=== PATIENT | female | born 1990 | race Caucasian/White ===

== ENCOUNTER 2016-10-07 19:57 | Inpatient (IN) | payer OTHER ==
[~2016-10-07] VITALS: Ht 152.4 cm; Wt 60.7 kg
[~2016-10-07 19:57] MED LIST: ACET325T33 PO; FERR27TA PO; NITR-58 PO; PREN1TAB49 PO
[2016-10-07] MEDS ORDERED: LACTATED RINGER'S 1,000 ML IV SCH ×2 (21:05→22:28)
[2016-10-07] MEDS ORDERED: TERBUTALINE 1 MG/ML INJ SC ONE ×2 (21:30→22:00)
[2016-10-07] MEDS ORDERED: ACETAMINOPHEN 325 MG TAB PO PRN (22:30)
[2016-10-07] MEDS ORDERED: CA GLUCONATE (GM) 10% 10ML INJ IV PRN (22:30)
[2016-10-07 22:39] LABS: ADD UMIC NO; UR ASCORBIC ACID NEGATIVE (NEGATIVE); UR BILIRUBIN (Dip) NEGATIVE (NEGATIVE); UR BLOOD (Dip) NEGATIVE (NEGATIVE); UR CLARITY CLEAR (CLEAR); UR COLOR YELLOW (YELLOW); UR GLUCOSE (Dip) NEGATIVE (NEGATIVE); UR KETONES (Dip) NEGATIVE (NEGATIVE); UR LEUKOCYTE ESTERASE (Dip) NEGATIVE Leu/ul (NEGATIVE); UR NITRITE (Dip) NEGATIVE (NEGATIVE); UR SPECIFIC GRAVITY (Dip) 1.012 (1.003-1.030); UR TOTAL PROTEIN (Dip) NEGATIVE (NEGATIVE); UR UROBILINOGEN (Dip) 1+ mg/dL (NEGATIVE)
[2016-10-07] MEDS: BETAMET NA PHOS/AC(6 MG/ML) 5ML INJ IM SCH (22:54)
[2016-10-07] MEDS: LACTATED RINGER'S 1,000 ML IV SCH (22:55)
[2016-10-07] MEDS ORDERED: MAGNESIUM SULFATE 4 GM/100 ML 100 ML IV SCH (23:00)
--- NOTE | 2016-10-07 23:05 | HP ---
Date/Time of Note Date/Time of Note DATE: 10/07/16 TIME: 22:56 OB - History Hx of Present Free Text/Dictation 26 y.o. with an IUP at 32w 2d and c/o contractions for a few days but stronger today and has a history of labor and delivery at 32 weeks with her 2nd baby. No bleeding or leaking. Chief Complaint: contractions. Estimated Due Date: Nov 30, 2016 : 5 Para: 4 Care: Good Care Ultrasounds: Normal mid trimester US (Per pt as her records are not available.) Abnormal Ultrasound Findings: On US done today the pt's cervix is short at 2 cm. Obstetrical Complications: None Medical Complications: None Past Family/Social History * Past Medical, Surgical, Family and Obstetric Histories reviewed with pt as prenatals not available. PMHx: none. PSHx: none. NKDA. Blood Type: Unknown Rubella: unknown RPR/VDRL: Unknown GBS Status: Unknown HBsAG: Unknown OB Admission Exam Physical Exam HEENT: WNL Heart: Rhythm Normal Abdomen: WNL Extremities: Normal Reflexes: Normal Cervical Dilatation: None Effacement: 75% Membranes: Intact Heart Rate: 150's Accelerations: Accelerations Present Decelerations: No Decelerations Varibility: Moderate Contractions on Admission: 6-10 Minutes Apart Intensity: Moderate OB Assessment/Plan Reason for admission: labor Other plan: Admit pt. Magnesium sulfate tocolysis. Steroids for pulmonary maturation. Beta strep cx, Bedrest. NADINE MCKEON MD Oct 07, 2016 23:05
[2016-10-07] MEDS: MAGNESIUM SULFATE 20 GM/500 ML 500 ML IV SCH (23:25)
--- NOTE | 2016-10-07 23:49 | RADRPT ---
PROCEDURE: Obstetrical ultrasound greater than 14 weeks CLINICAL INDICATION: labor TECHNIQUE: Real time sonographic imaging of the gravid uterus is performed transabdominally and mu ltiple static lui scale and Doppler images are submitted for review as are measurements. The image s are reviewed on the PACS. COMPARISON: No relevant exams are available FINDINGS: The cervical os is closed with a normal cervical length of 2.03 cm. There is a single living intrauterine gestation in cephalic presentation. The heart beat is estimated at 159 bpm. Placenta is anterior and grade2. There is no evidence of placenta previa or abruption. RPTAT:HJJR IMPRESSION: 1. Single viable intrauterine gestation in cephalic presentation the heart rate estimated at 159 bpm . 2. Cervical length measured at 2.03 cm. Physician Blaine Date Time Electronically viewed and signed by Physician Blaine on 10/07/2016 23:49 /
--- NOTE | 2016-10-07 23:54 | TRIAGE ---
OB Triage Datetime Report Generated by CPN: 10/07/2016 23:54 Datetime: 10/07/2016 23:45 Labor Evaluation Frequency: 2-7 Monitor Mode: External Duration (sec)2399: 40-70 Pattern: Normal: <= 5 Contractions in 10 Minutes Contraction Comments: IRREGULAR PATTERN Heart Rate FHR Baseline Rate: 145 Monitor Mode: External US FHR Baseline Changes: No Baseline Change Variability: Moderate 6-25 bpm Accelerations: 15X15 Category: Category I Datetime: 10/07/2016 23:00 Labor Evaluation Frequency: OCC Monitor Mode: External Pattern: Normal: <= 5 Contractions in 10 Minutes Heart Rate FHR Baseline Rate: 140 Monitor Mode: External US FHR Baseline Changes: No Baseline Change Variability: Moderate 6-25 bpm Accelerations: 15X15 Datetime: 10/07/2016 22:00 Labor Evaluation Frequency: OCC Monitor Mode: External Duration (sec)2399: 40-90 Pattern: Normal: <= 5 Contractions in 10 Minutes Monitor Mode: External US FHR Baseline Changes: No Baseline Change Variability: Moderate 6-25 bpm Accelerations: 10X10 Category: Category I Datetime: 10/07/2016 21:47 Pain Assessment Pain Assessment Comments: WHEN ASKED PATIENT ABOUT THE PAIN, PT. STATED THAT SHE FEELS 'MUCH MELODY R' Datetime: 10/07/2016 21:00 Labor Evaluation Frequency: 2-7 Monitor Mode: External Duration (sec)2399: 40-70 Pattern: Normal: <= 5 Contractions in 10 Minutes Heart Rate FHR Baseline Rate: 145 Monitor Mode: External US FHR Baseline Changes: No Baseline Change Variability: Moderate 6-25 bpm Accelerations: 15X15 Datetime: 10/07/2016 20:07 EGA: 32.2 Datetime: 10/07/2016 20:06 Time of Arrival: 10/07/2016 19:07 Arrived By: Ambulatory Arrived From: Home Chief Complaint: UC'S SINCE MONDAY, INCREASED ON MONDAY Movement: Present Contractions: Regular Time Contractions Began: 10/03/2016 09:00 Contractions: Q15-20 Rupture of Membranes: Denies Vaginal Discharge: Denies Recent Sexual Intercouse: Denies Abdominal Trauma: Not Applicable Patient Complaints: Contractions Time Provider Notified: 10/07/2016 20:50 Provider Notified: REICHE Initial Plan: EFM,CALL OB Datetime: 10/07/2016 20:00 Assessment Type: Triage Maternal Assessment Level of Consciousness: Fully Conscious Headache: Denies Blurred Vision: No Respiratory Effort: Unlabored; Regular Rhythm; Equal Expansion Breath Sounds, Left: Clear and Equal Breath Sounds, Right: Clear and Equal Nausea/Vomiting: Denies RUQ Epigastric Pain: Denies Facial Edema: None Fall Risk Assessment History of Falling: (0) No Secondary Diagnosis: (0) No Ambulatory Aid: (0) Bedrest/Nurse Assist IV Therapy: (0) No Gait: (0) Normal/Bedrest/Immobile Mental Status: (0) Oriented to Own Ability Fall Score: 0 Fall Risk Score Definition: No Risk: No action required
[2016-10-08 00:19] LABS: BASOPHILS % 0.2 % (0.0-2.0); EOSINOPHILS # 0.1 10^3/ul (0.0-0.5); EOSINOPHILS % 0.6 % (0.0-7.0); HEMATOCRIT 27.5 % (37.0-47.0); HEMOGLOBIN 8.7 g/dl (12.0-16.0); LYMPHOCYTES % 19.5 % (15.0-51.0); MEAN CORPUSCULAR HEMOGLOBIN 24.2 pg (29.0-33.0); MEAN CORPUSCULAR HGB CONC 31.6 g/dl (32.0-37.0); MEAN CORPUSCULAR VOLUME 76.6 fl (82.0-101.0); MEAN PLATELET VOLUME 11.1 fl (7.4-10.4); MONOCYTE # 0.5 10^3/ul (0.3-0.9); MONOCYTES % 4.8 % (0.0-11.0); NEUTROPHIL # 7.6 10^3/ul (1.6-7.5); NEUTROPHILS % 74.3 % (39.0-77.0); PLATELET COUNT 174 10^3/UL (140-415); RED BLOOD COUNT 3.59 10^6/ul (4.20-5.40); RED CELL DISTRIBUTION WIDTH 13.9 % (11.5-14.5); WHITE BLOOD COUNT 10.3 10^3/ul (4.8-10.8)
[2016-10-08 01:01] LABS: ALBUMIN 3.2 g/dl (3.3-4.9); ALBUMIN/GLOBULIN RATIO 1.06; BILIRUBIN,INDIRECT 0.1 mg/dl (0-1.1); BILIRUBIN,TOTAL 0.1 mg/dl (0.2-1.3); CALCIUM 7.7 mg/dl (8.4-10.2); CREATININE 0.46 mg/dl (0.44-1.00); TOTAL PROTEIN 6.2 g/dl (6.1-8.1)
[2016-10-08 01:03] LABS: POTASSIUM 2.8 mmol/L (3.5-5.1)
[2016-10-08] MEDS ORDERED: POTASSIUM CHLORIDE (SR) 20 MEQ TAB PO STA ×2 (01:22)
[2016-10-08] MEDS ORDERED: POTASSIUM CHLORIDE (SR) 20 MEQ TAB PO ONE (01:31)
[2016-10-08] MEDS: MAGNESIUM SULFATE 20 GM/500 ML 500 ML IV SCH ×3 (08:33→21:45)
[2016-10-08] MEDS: PRENATAL VITAMIN PO SCH (10:16)
[2016-10-08] MEDS: FERROUS SULFATE (EC) 325 MG TAB PO SCH ×2 (10:16→21:43)
[2016-10-08] MEDS: DOCUSATE SODIUM 100 MG CAP PO SCH ×2 (10:16→21:43)
[2016-10-08] MEDS: LACTATED RINGER'S 1,000 ML IV SCH (11:46)
--- NOTE | 2016-10-08 11:53 | PN ---
Date/Time of Note Date/Time of Note DATE: 10/08/16 TIME: 11:50 OB Subjective Subjective Subjective She is resting in bed her vital signs are stable describes mild contraction if you within 1 hour she still on 2 g of magnesium sulfate as of last night with reduced mag sulfate to 1 g at 9 PM with the plan to discontinue mag sulfate 12 hours later if if no more or fever contractions . FRANNIE SANTA MD Oct 08, 2016 11:53
[2016-10-08] MEDS: BETAMET NA PHOS/AC(6 MG/ML) 5ML INJ IM SCH (23:30)
[2016-10-09] MEDS: LACTATED RINGER'S 1,000 ML IV SCH (00:34)
[2016-10-09] MEDS: MAGNESIUM SULFATE 20 GM/500 ML 500 ML IV SCH (06:59)
[2016-10-09] MEDS: PRENATAL VITAMIN PO SCH (08:50)
[2016-10-09] MEDS: DOCUSATE SODIUM 100 MG CAP PO SCH ×2 (08:50→20:58)
[2016-10-09] MEDS: FERROUS SULFATE (EC) 325 MG TAB PO SCH ×2 (08:50→20:58)
[2016-10-10] MEDS: FERROUS SULFATE (EC) 325 MG TAB PO SCH (08:52)
[2016-10-10] MEDS: DOCUSATE SODIUM 100 MG CAP PO SCH (08:52)
[2016-10-10] MEDS: PRENATAL VITAMIN PO SCH (08:53)
--- NOTE | 2016-10-10 10:15 | PN ---
Date/Time of Note Date/Time of Note DATE: 10/10/16 TIME: 10:03 OB Subjective Subjective Subjective Today she is 32 weeks and 5 /7 days she was getting magnesium sulfate for contraction which she has no more contraction, her magnesium sulfate was stopped at 10:00 today she is being placed on Procardia 20 mg every 6 hours if she does well on Procardia and no more contraction she may be discharged if approved by the perinatologist, to continue on Procardia , twice per week NST clinic to check cervical length, she will have ultrasound for cervical length and estimated weight today. Her last cervical length on the was2.2 FRANNIE SANTA MD Oct 10, 2016 10:14
--- NOTE | 2016-10-10 11:26 | RADRPT ---
PROCEDURE: Limited obstetric ultrasound CLINICAL INDICATION: labor, short cervix TECHNIQUE: Multiple transverse and longitudinal grayscale images of the pelvis were obtained rea sabdominally and endovaginally.. COMPARISON: Obstetrical ultrasound from 10/07/2016 FINDINGS: There is a single live intrauterine gestation in a vertex position with a heart rate of 152 bp m. The cervix is closed and measures 2.1 cm in length. RPTAT: AA IMPRESSION: The cervix is closed and measures 2.1 cm in length which is not significantly changed compared to th e prior ultrasound study from 10/07/2016. Physician Remington Date Time Electronically viewed and signed by Chaitanya Sánchez Physician on 10/10/2016 11:26 RA/
[2016-10-10] MEDS: NIFEdipine 10 MG CAP PO SCH ×2 (11:55→17:26)
--- NOTE | 2016-10-10 15:35 | PERINOTE ---
Date/Time of Note Date/Time of Note DATE: 10/10/16 TIME: 15:31 Assessment/Recommendations Other Assessments IUP UCs, now resolved on medication Recommendations: Feel that this patient is ready for discharged to limited activity at home. OB Subjective Free Text/Dictaton Patient with prior delivery admitted with UCs, treated with magnesium sulfate and betamethasone. Currently without complaints of UCs and on PO meds. HD# 4 IUP @ 32W5D Current Medications Current Medications Prenat Multivit/ Facilities Officer/Iron/Folic Ac () 1 tab DAILY PO Last administered on 10/10/16 08:53; Admin Dose 1 TAB; Start 10/08/16 at 09:00 Acetaminophen (Tylenol Tab) 650 mg Q4H PRN PO PAIN AND OR ELEVATED TEMP Last administered on 10/08/16 07:46; Admin Dose 650 MG; Start 10/07/16 at 22:30 Calcium Gluconate (Ca Gluc) 1 gm ONCE PRN IV FOR MAGNESIUM TOXICITY; Start 10/07 at 22:30 Docusate Sodium (Colace) 100 mg BID PO Last administered on 10/10/16 08:52; Admin Dose 100 MG; Start 10/08/16 at 09:00 Ferrous Sulfate (Ferrous Sulfate (Ec)) 325 mg BID PO Last administered on 08:52; Admin Dose 325 MG; Start 10/08/16 at 09:00 Nifedipine (Procardia) 20 mg Q6 PO Last administered on 10/10/16 11:55; Admin Dose 20 MG; Start 10/10/16 at 12:00 Past Medical History Medical History: no pertinent history Surgical History: appendectomy SOFTWARE SPECIALIST History: no pertinent SOFTWARE SPECIALIST history Para: 4 : 5 LMP (Females 10-50): Family History Significant Family History: no pertinent family hx OB Admission Exam Physical Exam Vitals: BP 123/61 P 81 Heart: Rhythm Normal Lungs: Clear Abdomen: WNL Heart Rate: 140's Accelerations: Accelerations Present Decelerations: No Decelerations Varibility: Moderate Contractions on Admission: None Last 72 hours Lab Results CBC & BMP 10/08/16 00:13 10/08/16 06:34 Liver Function Test 10/08/16 00:13 Alanine Aminotransferase (ALT/SGPT) 24 Albumin 3.2 L Alkaline Phosphatase 154 H Aspartate Amino Transf (AST/SGOT) 18 Direct Bilirubin 0.00 Total Protein 6.2 Magnesium Level Test 10/08/16 06:34 10/08/16 11:55 10/08/16 18:04 10/09/16 00:35 Magnesium Level 5.2 *H 5.2 *H 5.3 *H 5.0 H Test 10/09/16 06:37 Magnesium Level 5.1 *H JANAY ELISE MD Oct 10, 2016 15:34
--- NOTE | 2016-10-11 05:38 | DS ---
DATE OF ADMISSION: 10/07/2016 DATE OF DISCHARGE: 10/10/2016 HOSPITAL COURSE: The patient is a 26-year-old G5, P4 at 32-1/2 weeks' intrauterine conception. This patient at that point was admitted for labor and started on magnesium sulfate and betamethasone. On the day of discharge, the patient's cervical length was 2.0. The patient was not florentino and os was closed. The patient was discharged home with followup with her CLERK within 1-2 days. All precautions were given and the patient is stable upon discharge. Dictated By: Rome Aranda MD /britt/jonathan /Document#: [id number]
== END 2016-10-10 17:25 | disposition home or self-care (01) | DRG 778 ==
LOC: L-D 19:57 → OBT 19:57 → OBG 23:44
PROVIDERS: ADMIT Obstetrics & Gynecology; ATTEND Obstetrics & Gynecology
DX: O60.03 Preterm labor without delivery, third trimester (principal); Z87.51 Personal history of pre-term labor; Z3A.32 32 weeks gestation of pregnancy
CPT/HCPCS: 36415; 76817; 80053; 81003; 82731; 83735; 84132; 85025; 87081; 96360; 96361; 96368; 96372; G0463; J0702; J3105; J3475; J7120

== ENCOUNTER 2016-11-09 22:35 | Outpatient (CLI) | payer OTHER ==
[~2016-11-09] VITALS: Ht 152.4 cm; Wt 63.4 kg
[~2016-11-09 22:35] MED LIST changes: +PREN-46 PO
[2016-11-09 23:42] VITALS: BP 141/90; PULSE 75; RESP 20
[2016-11-10 01:03] LABS: BASOPHILS % 0.3 % (0.0-2.0); EOSINOPHILS # 0.1 10^3/ul (0.0-0.5); EOSINOPHILS % 0.8 % (0.0-7.0); HEMATOCRIT 28.7 % (37.0-47.0); HEMOGLOBIN 8.9 g/dl (12.0-16.0); LYMPHOCYTES # 2.7 10^3/ul (0.8-2.9); LYMPHOCYTES % 31.1 % (15.0-51.0); MEAN CORPUSCULAR HEMOGLOBIN 23.2 pg (29.0-33.0); MEAN CORPUSCULAR VOLUME 74.7 fl (82.0-101.0); MEAN PLATELET VOLUME 11.6 fl (7.4-10.4); MONOCYTE # 0.6 10^3/ul (0.3-0.9); MONOCYTES % 6.6 % (0.0-11.0); NEUTROPHILS % 60.7 % (39.0-77.0); PLATELET COUNT 165 10^3/UL (140-415); RED BLOOD COUNT 3.84 10^6/ul (4.20-5.40); RED CELL DISTRIBUTION WIDTH 15.9 % (11.5-14.5); WHITE BLOOD COUNT 8.7 10^3/ul (4.8-10.8)
--- NOTE | 2016-11-10 01:20 | RADRPT ---
PROCEDURE: Biophysical profile. CLINICAL INDICATION: Pelvic pain. TECHNIQUE: Multiple sonographic images of the pelvis were obtained with transabdominal technique. COMPARISON: 10/10/2016. FINDINGS: There is a single living intrauterine gestation with the fetus in a vertex position. The placenta i s anterior in location, grade II to III. heart tones of 163 beats per minute are identified. There is low normal amniotic fluid volume with an SHRUTI of 8.7 cm. breathing movements = 2 Gross body movements = 2 tone = 2 Qualitative AFV = 2 IMPRESSION: Biophysical profile 8 out of 8. Low normal SHRUTI of 8.7 cm. .Mike Johnson MD, Date Time Electronically viewed and signed by .Mike Johnson MD, MD on 11/10/2016 01:20 .T/
--- NOTE | 2016-11-10 01:20 | RADRPT ---
PROCEDURE: Obstetrical ultrasound, limited. CLINICAL INDICATION: Pelvic pain. TECHNIQUE: Multiple sonographic images of the pelvis were obtained using transabdominal technique . Images were obtained with lui scale and color Doppler. The images were reviewed on a PACS works [employer]. COMPARISON: 10/10/2016. FINDINGS: There is a single living intrauterine gestation with the fetus in a vertex presentation. hear t tones of 166 beats per minute are identified. The placenta is anterior in location, grade 2-3. T here is no evidence of placenta previa or abruption. Measurements were made in order to determine age. The results are as follows: BPD =8.52 cm HC =30.94 cm AC =34.33 cm FL =7.19 cm. Estimated gestational age of approximately 36 weeks and 0 days. The estimated date of delivery is 12/08/2016. The EFW = 3090 +/- 463 grams. Estimated weight percentage equals 56.4%. IMPRESSION: Single viable intrauterine gestation of approximately 36 weeks and 0 days, with an ultrasound ROSALIO of 12/08/2016. .Mike Johnson MD, MD Date Time Electronically viewed and signed by .Mike Johnson MD, MD on 11/10/2016 01:19 .T/
[2016-11-10 02:06] LABS: PARTIAL THROMBOPLASTIN TIME 30.7 Sec (25.0-35.0); PROTIME 13.2 Sec (12.2-14.2)
[2016-11-10 02:14] LABS: ALBUMIN 2.9 g/dl (3.3-4.9); ALBUMIN/GLOBULIN RATIO 0.93; BILIRUBIN,INDIRECT 0.2 mg/dl (0-1.1); BILIRUBIN,TOTAL 0.2 mg/dl (0.2-1.3); CALCIUM 8.2 mg/dl (8.4-10.2); CREATININE 0.6 mg/dl (0.44-1.00); POTASSIUM 3.7 mmol/L (3.5-5.1); URIC ACID 3.9 mg/dl (3.1-7.9)
[2016-11-10 03:17] LABS: ADD UMIC NO; UR ASCORBIC ACID NEGATIVE (NEGATIVE); UR BILIRUBIN (Dip) NEGATIVE (NEGATIVE); UR BLOOD (Dip) NEGATIVE (NEGATIVE); UR CLARITY CLEAR (CLEAR); UR COLOR YELLOW (YELLOW); UR GLUCOSE (Dip) NEGATIVE (NEGATIVE); UR KETONES (Dip) NEGATIVE (NEGATIVE); UR LEUKOCYTE ESTERASE (Dip) NEGATIVE Leu/ul (NEGATIVE); UR NITRITE (Dip) NEGATIVE (NEGATIVE); UR SPECIFIC GRAVITY (Dip) 1.015 (1.003-1.030); UR TOTAL PROTEIN (Dip) NEGATIVE (NEGATIVE); UR UROBILINOGEN (Dip) NEGATIVE (NEGATIVE)
--- NOTE | 2016-11-10 04:21 | TRIAGE ---
OB Triage Datetime Report Generated by CPN: 11/10/2016 04:20 Datetime: 11/10/2016 03:53 Stage of : OB Triage Monitor Mode: External Quality: Mild Pattern: Normal: <= 5 Contractions in 10 Minutes Resting Tone [place]: Relaxed Heart Rate FHR Baseline Rate: 120 Monitor Mode: External US FHR Baseline Changes: No Baseline Change Variability: Moderate 6-25 bpm Accelerations: 15X15 Decelerations: None Category: Category I Pain Assessment Pain Scale: 0 Pain Presence: None/Denies Pain Type: N/A Datetime: 11/10/2016 03:01 Stage of : OB Triage Monitor Mode: External Quality: Mild Pattern: Normal: <= 5 Contractions in 10 Minutes Resting Tone [place]: Relaxed Heart Rate FHR Baseline Rate: 120 Monitor Mode: External US FHR Baseline Changes: No Baseline Change Variability: Moderate 6-25 bpm Accelerations: 15X15 Decelerations: None Category: Category I Datetime: 11/10/2016 02:00 Stage of : OB Triage Quality: Mild Pattern: Normal: <= 5 Contractions in 10 Minutes Resting Tone [place]: Relaxed Heart Rate FHR Baseline Rate: 120 Monitor Mode: External US Variability: Moderate 6-25 bpm Accelerations: 15X15 Decelerations: None Category: Category I Pain Presence: Intermittent Pain Type: Cramping Datetime: 11/10/2016 01:02 Heart Rate FHR Baseline Rate: 140 Monitor Mode: External US FHR Baseline Changes: No Baseline Change Variability: Moderate 6-25 bpm Accelerations: 15X15 Datetime: 11/10/2016 00:21 Vaginal Exam Dilatation (cms): 1.0 Effacement (%): 50 Station: -3 Exam By: EVELYN Vaginal Bleeding: None Cervix, Consistency: Moderate Cervix, Position: Posterior Datetime: 11/09/2016 23:55 Stage of : OB Triage Labor Evaluation Frequency: 2-5 Monitor Mode: External Duration (sec)2399: 40-60 Quality: Mild Pattern: Normal: <= 5 Contractions in 10 Minutes Resting Tone [place]: Relaxed Heart Rate FHR Baseline Rate: 130 Monitor Mode: External US FHR Baseline Changes: No Baseline Change Variability: Moderate 6-25 bpm Accelerations: 15X15 Decelerations: None Category: Category I Datetime: 11/09/2016 23:10 Stage of : OB Triage Maternal Assessment Level of Consciousness: Fully Conscious DTR's/Clonus: DTRs 2+; No Clonus Headache: Denies Blurred Vision: No Respiratory Effort: Unlabored Nausea/Vomiting: Denies RUQ Epigastric Pain: Denies Facial Edema: None Monitor Mode: External Resting Tone [place]: Relaxed Heart Rate FHR Baseline Rate: 140 Monitor Mode: External US Pain Assessment Pain Scale: 5 Pain Presence: Intermittent Pain Type: Contraction Pain Location: Abdomen Datetime: 11/09/2016 23:00 Time of Arrival: 11/09/2016 22:30 EGA: 37.0 Arrived By: Wheelchair Arrived From: Home Chief Complaint: c/o ucs Movement: Present Contractions: Irregular Time Contractions Began: 11/09/2016 19:30 Contractions: 10-15 Rupture of Membranes: Denies Vaginal Bleeding: None Vaginal Discharge: Denies Recent Sexual Intercouse: Denies Abdominal Trauma: Not Applicable Patient Complaints: Contractions Time Provider Notified: 11/09/2016 23:55 Provider Notified: Dr Ardalan Initial Plan: EFM,SVE,PIH labs, EFW,BPP Datetime: 10/10/2016 17:27 Stage of : Antepartum Datetime: 10/10/2016 17:00 Labor Evaluation Frequency: x1 Monitor Mode: External Duration (sec)2399: 40 Quality: Mild Heart Rate FHR Baseline Rate: 145 Monitor Mode: External US FHR Baseline Changes: No Baseline Change Variability: Moderate 6-25 bpm Accelerations: 15X15 Decelerations: None Datetime: 10/10/2016 16:00 Labor Evaluation Frequency: x1 Monitor Mode: External Duration (sec)2399: 40 Quality: Mild Heart Rate FHR Baseline Rate: 145 Monitor Mode: External US FHR Baseline Changes: No Baseline Change Variability: Moderate 6-25 bpm Accelerations: 15X15 Decelerations: None Datetime: 10/10/2016 15:47 Temperature Route: Oral Datetime: 10/10/2016 15:00 Labor Evaluation Frequency: x1 Monitor Mode: External Duration (sec)2399: 40 Quality: Mild Heart Rate FHR Baseline Rate: 145 Monitor Mode: External US FHR Baseline Changes: No Baseline Change Variability: Moderate 6-25 bpm Accelerations: 15X15 Decelerations: None Category: Category I Datetime: 10/10/2016 14:42 Stage of : Antepartum Datetime: 10/10/2016 14:00 Labor Evaluation Frequency: x1 Monitor Mode: External Duration (sec)2399: 60 Quality: Mild Resting Tone [place]: Relaxed Heart Rate FHR Baseline Rate: 140 Monitor Mode: External US FHR Baseline Changes: No Baseline Change Variability: Moderate 6-25 bpm Accelerations: 15X15 Decelerations: None Category: Category I Datetime: 10/10/2016 13:00 Labor Evaluation Frequency: x1 Monitor Mode: External Duration (sec)2399: 60 Quality: Mild Resting Tone [place]: Relaxed Heart Rate FHR Baseline Rate: 140 Monitor Mode: External US FHR Baseline Changes: No Baseline Change Variability: Moderate 6-25 bpm Accelerations: 15X15 Decelerations: None Datetime: 10/10/2016 12:35 Stage of : Antepartum Datetime: 10/10/2016 12:00 Labor Evaluation Frequency: x1 Monitor Mode: External Duration (sec)2399: 70 Quality: Mild Resting Tone [place]: Relaxed Heart Rate FHR Baseline Rate: 140 Monitor Mode: External US FHR Baseline Changes: No Baseline Change Variability: Moderate 6-25 bpm Accelerations: 15X15 Decelerations: None Category: Category I Datetime: 10/10/2016 11:54 Stage of : Antepartum Temperature Route: Oral Pain Assessment Pain Scale: 0 Pain Goal: 0 Datetime: 10/10/2016 11:00 Labor Evaluation Frequency: x2 Monitor Mode: External Duration (sec)2399: 70 Quality: Mild Resting Tone [place]: Relaxed Heart Rate FHR Baseline Rate: 140 Monitor Mode: External US FHR Baseline Changes: No Baseline Change Variability: Moderate 6-25 bpm Accelerations: 15X15 Decelerations: None Category: Category I Pain Assessment Pain Scale: 1 Pain Presence: Intermittent Pain Location: Abdomen Datetime: 10/10/2016 10:00 Labor Evaluation Frequency: irritabilities Monitor Mode: External Duration (sec)2399: 20 Quality: Mild Resting Tone [place]: Relaxed Heart Rate FHR Baseline Rate: 135 Monitor Mode: External US FHR Baseline Changes: No Baseline Change Variability: Moderate 6-25 bpm Accelerations: 15X15 Decelerations: None Category: Category I Datetime: 10/10/2016 09:00 Labor Evaluation Frequency: 0 Monitor Mode: External Resting Tone [place]: Relaxed Heart Rate FHR Baseline Rate: 140 Monitor Mode: External US FHR Baseline Changes: No Baseline Change Variability: Moderate 6-25 bpm Accelerations: 10X10 Datetime: 10/10/2016 08:00 Labor Evaluation Frequency: x3 Monitor Mode: External Duration (sec)2399: 60 Quality: Mild Resting Tone [place]: Relaxed Heart Rate FHR Baseline Rate: 145 Monitor Mode: External US FHR Baseline Changes: No Baseline Change Variability: Moderate 6-25 bpm Accelerations: 15X15 Decelerations: None Category: Category I Pain Assessment Pain Scale: 0 Pain Presence: None/Denies Pain Type: N/A Datetime: 10/10/2016 07:59 Temperature Route: Oral Pain Assessment Pain Scale: 0 Pain Presence: None/Denies Pain Goal: 0 Datetime: 10/10/2016 07:50 Assessment Type: Ongoing Assessment Maternal Assessment Level of Consciousness: Fully Conscious Headache: Denies Blurred Vision: No Respiratory Effort: Unlabored; Regular Rhythm; Equal Expansion Nausea/Vomiting: Denies RUQ Epigastric Pain: Denies Lower Extremities Edema: None Upper Extremities Edema: None Facial Edema: None Fall Risk Assessment History of Falling: (0) No Secondary Diagnosis: (0) No Ambulatory Aid: (0) Bedrest/Nurse Assist IV Therapy: (0) No Gait: (0) Normal/Bedrest/Immobile Mental Status: (0) Oriented to Own Ability Fall Score: 0 Fall Risk Score Definition: No Risk: No action required Datetime: 10/10/2016 07:00 Labor Evaluation Frequency: 0 Monitor Mode: External Heart Rate FHR Baseline Rate: 140 Monitor Mode: External US Comments: POOR QUALITY WHILE SLEEPING ON HER SIDE. Datetime: 10/10/2016 06:00 Labor Evaluation Frequency: 0 Monitor Mode: External Heart Rate FHR Baseline Rate: 140 Monitor Mode: External US FHR Baseline Changes: No Baseline Change Variability: Moderate 6-25 bpm Accelerations: 15X15 Decelerations: None Category: Category I Datetime: 10/10/2016 05:58 Temperature Route: Oral Pain Assessment Pain Scale: 0 Datetime: 10/10/2016 05:00 Labor Evaluation Frequency: X2 Monitor Mode: External Duration (sec)2399: 80-120 Quality: Mild Resting Tone [place]: Relaxed Heart Rate FHR Baseline Rate: 140 Monitor Mode: External US FHR Baseline Changes: No Baseline Change Variability: Moderate 6-25 bpm Accelerations: 15X15 Decelerations: None Category: Category I Datetime: 10/10/2016 04:00 Labor Evaluation Frequency: X1+IRRTABL Monitor Mode: External Duration (sec)2399: 20-80 Quality: Mild Resting Tone [place]: Relaxed Heart Rate FHR Baseline Rate: 140 Monitor Mode: External US FHR Baseline Changes: No Baseline Change Variability: Moderate 6-25 bpm Accelerations: 15X15 Decelerations: None Category: Category I Datetime: 10/10/2016 03:00 Labor Evaluation Frequency: X1 Monitor Mode: External Duration (sec)2399: 90 Quality: Mild Resting Tone [place]: Relaxed Heart Rate FHR Baseline Rate: 140 Monitor Mode: External US FHR Baseline Changes: No Baseline Change Variability: Moderate 6-25 bpm Accelerations: 15X15 Decelerations: None Category: Category I Datetime: 10/10/2016 02:00 Labor Evaluation Frequency: 0 Monitor Mode: External Heart Rate FHR Baseline Rate: 140 Monitor Mode: External US FHR Baseline Changes: No Baseline Change Variability: Moderate 6-25 bpm Accelerations: 15X15 Decelerations: None Category: Category I Datetime: 10/10/2016 01:00 Labor Evaluation Frequency: 0 Monitor Mode: External Heart Rate FHR Baseline Rate: 135 Monitor Mode: External US FHR Baseline Changes: No Baseline Change Variability: Moderate 6-25 bpm Accelerations: 15X15 Decelerations: None Category: Category I Datetime: 10/10/2016 00:00 Labor Evaluation Frequency: 0 Monitor Mode: External Heart Rate FHR Baseline Rate: 140 Monitor Mode: External US FHR Baseline Changes: No Baseline Change Variability: Moderate 6-25 bpm Accelerations: 15X15 Decelerations: None Category: Category I Datetime: 10/09/2016 23:00 Labor Evaluation Frequency: 0 Monitor Mode: External Heart Rate FHR Baseline Rate: 140 Monitor Mode: External US FHR Baseline Changes: No Baseline Change Variability: Moderate 6-25 bpm Accelerations: 15X15 Decelerations: None Category: Category I Datetime: 10/09/2016 22:00 Labor Evaluation Frequency: 0 Monitor Mode: External Heart Rate FHR Baseline Rate: 140 Monitor Mode: External US FHR Baseline Changes: No Baseline Change Variability: Moderate 6-25 bpm Accelerations: 15X15 Decelerations: None Category: Category I Datetime: 10/09/2016 21:00 Labor Evaluation Frequency: 0 Monitor Mode: External Heart Rate FHR Baseline Rate: 140 Monitor Mode: External US FHR Baseline Changes: No Baseline Change Variability: Moderate 6-25 bpm Accelerations: 15X15 Decelerations: None Category: Category I Datetime: 10/09/2016 20:00 Labor Evaluation Frequency: 0 Monitor Mode: External Heart Rate FHR Baseline Rate: 135 Monitor Mode: External US FHR Baseline Changes: No Baseline Change Variability: Moderate 6-25 bpm Accelerations: 15X15 Decelerations: None Category: Category I Datetime: 10/09/2016 19:50 Assessment Type: Ongoing Assessment Maternal Assessment Level of Consciousness: Fully Conscious Headache: Denies Blurred Vision: No Respiratory Effort: Unlabored; Regular Rhythm; Equal Expansion Nausea/Vomiting: Denies RUQ Epigastric Pain: Denies Lower Extremities Edema: None Upper Extremities Edema: None Facial Edema: None Temperature Route: Oral Fall Risk Assessment History of Falling: (0) No Secondary Diagnosis: (0) No Ambulatory Aid: (0) Bedrest/Nurse Assist IV Therapy: (0) No Gait: (0) Normal/Bedrest/Immobile Mental Status: (0) Oriented to Own Ability Fall Score: 0 Fall Risk Score Definition: No Risk: No action required Pain Assessment Pain Scale: 0 Datetime: 10/09/2016 18:49 Labor Evaluation Frequency: 0 Monitor Mode: External Duration (sec)2399: 0 Pattern: Normal: <= 5 Contractions in 10 Minutes Resting Tone [place]: Relaxed Contraction Comments: DENIES FEELING ANY UC'S Heart Rate FHR Baseline Rate: 130 Monitor Mode: External US FHR Baseline Changes: No Baseline Change Variability: Moderate 6-25 bpm Accelerations: 15X15 Decelerations: None Category: Category I Datetime: 10/09/2016 17:59 Labor Evaluation Frequency: 0 Monitor Mode: External Duration (sec)2399: 0 Pattern: Normal: <= 5 Contractions in 10 Minutes Resting Tone [place]: Relaxed Contraction Comments: ABDOMEN SOFT TO PALPATION. DENIES FEELING ANY UC'S Heart Rate FHR Baseline Rate: 135 Monitor Mode: External US FHR Baseline Changes: No Baseline Change Variability: Moderate 6-25 bpm Accelerations: 15X15 Decelerations: None Category: Category I Comments: PT STILL SITTING UP EATING DINNER Datetime: 10/09/2016 17:19 Comments: SITTING UP IN BED EATING DINNER Datetime: 10/09/2016 16:59 Labor Evaluation Frequency: 0 Monitor Mode: External Duration (sec)2399: 0 Pattern: Normal: <= 5 Contractions in 10 Minutes Contraction Comments: DENIES FEELING ANY UC'S Heart Rate FHR Baseline Rate: 130 Monitor Mode: External US FHR Baseline Changes: No Baseline Change Variability: Moderate 6-25 bpm Accelerations: 15X15 Decelerations: None Category: Category I Comments: PT SLEEPING ON SIDE. LOSS OC CONTACT AT TIMES Datetime: 10/09/2016 15:54 Labor Evaluation Frequency: 0 Monitor Mode: External Duration (sec)2399: 0 Pattern: Normal: <= 5 Contractions in 10 Minutes Contraction Comments: SCATTERED IRRITABILITY NOTED Heart Rate FHR Baseline Rate: 125 Monitor Mode: External US FHR Baseline Changes: No Baseline Change Variability: Moderate 6-25 bpm Accelerations: 15X15 Decelerations: None Category: Category I Datetime: 10/09/2016 14:59 Labor Evaluation Frequency: 0 Monitor Mode: External Duration (sec)2399: 0 Pattern: Normal: <= 5 Contractions in 10 Minutes Resting Tone [place]: Relaxed Contraction Comments: DENIES FEELING ANY UC'S Heart Rate FHR Baseline Rate: 130 Monitor Mode: External US FHR Baseline Changes: No Baseline Change Variability: Moderate 6-25 bpm Accelerations: 15X15 Decelerations: None Category: Category I Datetime: 10/09/2016 14:00 Labor Evaluation Frequency: 2 NOTED IN ONE HOUR Monitor Mode: External Duration (sec)2399: 50-70 Pattern: Normal: <= 5 Contractions in 10 Minutes Resting Tone [place]: Relaxed Contraction Comments: PT DENIES ANY DISCOMFORT Heart Rate FHR Baseline Rate: 130 Monitor Mode: External US FHR Baseline Changes: No Baseline Change Variability: Moderate 6-25 bpm Accelerations: 15X15 Decelerations: None Category: Category I Datetime: 10/09/2016 12:59 Labor Evaluation Frequency: ONE NOTED IN ONE HOUR Monitor Mode: External Duration (sec)2399: 60 Pattern: Normal: <= 5 Contractions in 10 Minutes Contraction Comments: SCATTERED IRRITABILITY NOTED Heart Rate FHR Baseline Rate: 125 Monitor Mode: External US FHR Baseline Changes: No Baseline Change Variability: Moderate 6-25 bpm Accelerations: 15X15 Decelerations: None Category: Category I Datetime: 10/09/2016 12:01 Labor Evaluation Frequency: ONE NOTED IN ONE HOUR Monitor Mode: External Duration (sec)2399: 60 Pattern: Normal: <= 5 Contractions in 10 Minutes Resting Tone [place]: Relaxed Contraction Comments: SOME SCATTERED IRRITABILITY NOTED Heart Rate FHR Baseline Rate: 120 Monitor Mode: External US FHR Baseline Changes: No Baseline Change Variability: Moderate 6-25 bpm Accelerations: 15X15 Decelerations: None Category: Category I Datetime: 10/09/2016 10:52 Labor Evaluation Frequency: 2 NOTED IN 30 MIN Monitor Mode: External Duration (sec)2399: 60-80 Pattern: Normal: <= 5 Contractions in 10 Minutes Resting Tone [place]: Relaxed Contraction Comments: PT DENIES ANY UC'S. ABDOMEN SOFT TO PALPATION Heart Rate FHR Baseline Rate: 120 Monitor Mode: External US FHR Baseline Changes: No Baseline Change Variability: Moderate 6-25 bpm Accelerations: 15X15 Decelerations: Early Category: Category I Datetime: 10/09/2016 10:30 Labor Evaluation Frequency: 0 Monitor Mode: External Duration (sec)2399: 0 Pattern: Normal: <= 5 Contractions in 10 Minutes Heart Rate FHR Baseline Rate: 120 Monitor Mode: External US FHR Baseline Changes: No Baseline Change Variability: Moderate 6-25 bpm Accelerations: 15X15 Decelerations: None Category: Category I Datetime: 10/09/2016 10:02 Maternal Assessment Level of Consciousness: Fully Conscious DTR's/Clonus: DTRs 2+; No Clonus Headache: Denies Blurred Vision: No Breath Sounds, Left: Clear and Equal Breath Sounds, Right: Clear and Equal Nausea/Vomiting: Denies RUQ Epigastric Pain: Denies Facial Edema: None Datetime: 10/09/2016 10:00 Labor Evaluation Frequency: 2 NOTED IN 30 MIN Monitor Mode: External Duration (sec)2399: 50-60 Pattern: Normal: <= 5 Contractions in 10 Minutes Contraction Comments: SOME SCATTERED IRRITABILITY NOTED Heart Rate FHR Baseline Rate: 120 Monitor Mode: External US FHR Baseline Changes: No Baseline Change Variability: Moderate 6-25 bpm Accelerations: 15X15 Decelerations: None Category: Category I Datetime: 10/09/2016 09:30 Labor Evaluation Frequency: ONE NOTED IN 30 MIN Monitor Mode: External Duration (sec)2399: 60 Pattern: Normal: <= 5 Contractions in 10 Minutes Resting Tone [place]: Relaxed Heart Rate FHR Baseline Rate: 120 Monitor Mode: External US FHR Baseline Changes: No Baseline Change Variability: Moderate 6-25 bpm Accelerations: 15X15 Decelerations: None Category: Category I Datetime: 10/09/2016 09:00 Labor Evaluation Frequency: ONE NOTED IN 30 MIN. Monitor Mode: External Duration (sec)2399: 70 Pattern: Normal: <= 5 Contractions in 10 Minutes Resting Tone [place]: Relaxed Contraction Comments: PT SITTING UP EATING BREAKFAST. SOME SCATTERED IRRITABILITY NOTED Heart Rate FHR Baseline Rate: 120 Monitor Mode: External US FHR Baseline Changes: No Baseline Change Variability: Moderate 6-25 bpm Accelerations: 15X15 Decelerations: None Category: Category I Datetime: 10/09/2016 08:30 Labor Evaluation Frequency: ONE NOTED IN 30 MIN Monitor Mode: External Duration (sec)2399: 40 Pattern: Normal: <= 5 Contractions in 10 Minutes Resting Tone [place]: Relaxed Heart Rate FHR Baseline Rate: 120 Monitor Mode: External US FHR Baseline Changes: No Baseline Change Variability: Moderate 6-25 bpm Accelerations: 15X15 Decelerations: None Category: Category I Datetime: 10/09/2016 08:00 Labor Evaluation Frequency: 0 Monitor Mode: External Duration (sec)2399: 0 Pattern: Normal: <= 5 Contractions in 10 Minutes Resting Tone [place]: Relaxed Contraction Comments: DENIES FEELING ANY UC'S. ABDOMEN SOFT TO PALPATION Heart Rate FHR Baseline Rate: 120 Monitor Mode: External US FHR Baseline Changes: No Baseline Change Variability: Moderate 6-25 bpm Accelerations: 15X15 Decelerations: None Category: Category I Datetime: 10/09/2016 07:32 Assessment Type: Ongoing Assessment Maternal Assessment Level of Consciousness: Fully Conscious DTR's/Clonus: DTRs 2+; No Clonus Headache: Denies Blurred Vision: No Respiratory Effort: Unlabored; Regular Rhythm; Equal Expansion Breath Sounds, Left: Clear and Equal Breath Sounds, Right: Clear and Equal Nausea/Vomiting: Denies RUQ Epigastric Pain: Denies Lower Extremities Edema: None Degree: None Upper Extremities Edema: None Degree: None Facial Edema: None Fall Risk Assessment History of Falling: (0) No Secondary Diagnosis: (0) No Ambulatory Aid: (0) Bedrest/Nurse Assist IV Therapy: (20) Yes Gait: (0) Normal/Bedrest/Immobile Mental Status: (0) Oriented to Own Ability Fall Score: 20 Fall Risk Score Definition: No Risk: No action required Datetime: 10/09/2016 07:22 Pain Assessment Pain Scale: 0 Pain Presence: None/Denies Pain Type: N/A Pain Goal: 0 Datetime: 10/09/2016 07:00 Labor Evaluation Frequency: IRRITABL Monitor Mode: External Duration (sec)2399: 20-40 Quality: Mild Resting Tone [place]: Relaxed Heart Rate FHR Baseline Rate: 130 Monitor Mode: External US FHR Baseline Changes: No Baseline Change Variability: Moderate 6-25 bpm Accelerations: 15X15 Decelerations: None Category: Category I Datetime: 10/09/2016 06:00 Labor Evaluation Frequency: 0 Monitor Mode: External Heart Rate FHR Baseline Rate: 120 Monitor Mode: External US FHR Baseline Changes: No Baseline Change Variability: Moderate 6-25 bpm Accelerations: 15X15 Decelerations: None Category: Category I Datetime: 10/09/2016 05:00 Labor Evaluation Frequency: 0 Monitor Mode: External Heart Rate FHR Baseline Rate: 120 Monitor Mode: External US FHR Baseline Changes: No Baseline Change Variability: Moderate 6-25 bpm Accelerations: 15X15 Decelerations: None Category: Category I Datetime: 10/09/2016 04:43 Maternal Assessment Level of Consciousness: Fully Conscious DTR's/Clonus: DTRs 2+ Breath Sounds, Left: Clear and Equal Breath Sounds, Right: Clear and Equal Temperature Route: Oral Pain Assessment Pain Scale: 0 Datetime: 10/09/2016 04:00 Labor Evaluation Frequency: 0 Monitor Mode: External Heart Rate FHR Baseline Rate: 120 Monitor Mode: External US Comments: POOR QUALITY Datetime: 10/09/2016 03:00 Labor Evaluation Frequency: 0 Monitor Mode: External Heart Rate FHR Baseline Rate: 130 Monitor Mode: External US FHR Baseline Changes: No Baseline Change Variability: Moderate 6-25 bpm Accelerations: 15X15 Decelerations: None Category: Category I Datetime: 10/09/2016 02:00 Labor Evaluation Frequency: 0 Monitor Mode: External Heart Rate FHR Baseline Rate: 130 Monitor Mode: External US FHR Baseline Changes: No Baseline Change Variability: Moderate 6-25 bpm Accelerations: 15X15 Decelerations: None Category: Category I Datetime: 10/09/2016 01:00 Labor Evaluation Frequency: 0 Monitor Mode: External Heart Rate FHR Baseline Rate: 130 Monitor Mode: External US FHR Baseline Changes: No Baseline Change Variability: Moderate 6-25 bpm Accelerations: 15X15 Decelerations: None Category: Category I Datetime: 10/09/2016 00:14 Maternal Assessment Level of Consciousness: SLEEPING DTR's/Clonus: DTRs 2+ Breath Sounds, Left: Clear and Equal Breath Sounds, Right: Clear and Equal Temperature Route: Oral Pain Assessment Pain Scale: 0 Datetime: 10/09/2016 00:00 Monitor Mode: External Heart Rate FHR Baseline Rate: 120 Monitor Mode: External US FHR Baseline Changes: No Baseline Change Variability: Moderate 6-25 bpm Accelerations: 15X15 Decelerations: None Category: Category I Datetime: 10/08/2016 23:00 Labor Evaluation Frequency: 0 Monitor Mode: External Heart Rate FHR Baseline Rate: 120 Monitor Mode: External US FHR Baseline Changes: No Baseline Change Variability: Moderate 6-25 bpm Accelerations: 15X15 Decelerations: None Category: Category I Datetime: 10/08/2016 22:00 Labor Evaluation Frequency: 0 Monitor Mode: External Heart Rate FHR Baseline Rate: 130 Monitor Mode: External US FHR Baseline Changes: No Baseline Change Variability: Moderate 6-25 bpm Accelerations: 15X15 Decelerations: None Category: Category I Datetime: 10/08/2016 21:00 Labor Evaluation Frequency: X1 Monitor Mode: External Duration (sec)2399: 40 Quality: Mild Resting Tone [place]: Relaxed Heart Rate FHR Baseline Rate: 120 Monitor Mode: External US FHR Baseline Changes: No Baseline Change Variability: Moderate 6-25 bpm Accelerations: 15X15 Decelerations: None Category: Category I Datetime: 10/08/2016 20:00 Labor Evaluation Frequency: 0 Monitor Mode: External Heart Rate FHR Baseline Rate: 120 Monitor Mode: External US FHR Baseline Changes: No Baseline Change Variability: Moderate 6-25 bpm Accelerations: 15X15 Decelerations: None Category: Category I Datetime: 10/08/2016 19:51 Temperature Route: Oral Pain Assessment Pain Scale: 3 Pain Presence: Constant Pain Type: Pressure Pain Location: Abdomen Pain Relief Measures: Comfort Measures Datetime: 10/08/2016 19:41 Assessment Type: Ongoing Assessment Maternal Assessment Level of Consciousness: Fully Conscious DTR's/Clonus: DTRs 2+; No Clonus Headache: Denies Blurred Vision: No Respiratory Effort: Unlabored; Regular Rhythm; Equal Expansion Breath Sounds, Left: Clear and Equal Breath Sounds, Right: Clear and Equal Nausea/Vomiting: Denies RUQ Epigastric Pain: Denies Lower Extremities Edema: None Upper Extremities Edema: None Facial Edema: None Fall Risk Assessment History of Falling: (0) No Secondary Diagnosis: (0) No Ambulatory Aid: (0) Bedrest/Nurse Assist IV Therapy: (20) Yes Gait: (0) Normal/Bedrest/Immobile Mental Status: (0) Oriented to Own Ability Fall Score: 20 Fall Risk Score Definition: No Risk: No action required Datetime: 10/08/2016 19:00 Stage of : Antepartum Maternal Assessment Level of Consciousness: Fully Conscious DTR's/Clonus: DTRs 2+ Headache: Denies Nausea/Vomiting: Denies RUQ Epigastric Pain: Denies Labor Evaluation Frequency: 1/hr Monitor Mode: External Duration (sec)2399: 60 Quality: Mild Resting Tone [place]: Relaxed Heart Rate FHR Baseline Rate: 125 Monitor Mode: External US Variability: Moderate 6-25 bpm Accelerations: 15X15 Decelerations: None Pain Assessment Pain Scale: 0 Pain Presence: None/Denies Vaginal Bleeding: None Datetime: 10/08/2016 17:00 Stage of : Antepartum Maternal Assessment Level of Consciousness: Fully Conscious Headache: Denies Nausea/Vomiting: Denies RUQ Epigastric Pain: Denies Labor Evaluation Frequency: 1/hr Monitor Mode: External Duration (sec)2399: 60 Quality: Mild Resting Tone [place]: Relaxed Heart Rate FHR Baseline Rate: 125 Monitor Mode: External US Variability: Moderate 6-25 bpm Accelerations: 15X15 Decelerations: None Pain Assessment Pain Scale: 0 Pain Presence: None/Denies Vaginal Bleeding: None Datetime: 10/08/2016 16:52 Maternal Assessment Level of Consciousness: Fully Conscious DTR's/Clonus: DTRs 2+ Headache: Denies Blurred Vision: No Respiratory Effort: Unlabored Nausea/Vomiting: Denies Contraction Comments: pt. states relief from uc's since magnesium sulfate increased Pain Presence: None/Denies Datetime: 10/08/2016 16:00 Stage of : Antepartum Maternal Assessment Level of Consciousness: Fully Conscious Headache: Denies Nausea/Vomiting: Denies RUQ Epigastric Pain: Denies Labor Evaluation Frequency: 2/hr Monitor Mode: External Duration (sec)2399: 90-80 Quality: Moderate Resting Tone [place]: Relaxed Heart Rate FHR Baseline Rate: 120 Monitor Mode: External US Variability: Moderate 6-25 bpm Accelerations: 15X15 Decelerations: None Pain Assessment Pain Scale: 3 Pain Presence: Intermittent Pain Type: Contraction Pain Location: Abdomen; Back Membrane Status: Intact Vaginal Bleeding: None Datetime: 10/08/2016 15:06 Stage of : Antepartum Maternal Assessment Level of Consciousness: Fully Conscious DTR's/Clonus: DTRs 2+ Headache: Denies Nausea/Vomiting: Denies RUQ Epigastric Pain: Denies Labor Evaluation Frequency: irregular Monitor Mode: External Monitor Mode: Palpation Duration (sec)2399: 60-80 Quality: Moderate Heart Rate FHR Baseline Rate: 120 Monitor Mode: External US Variability: Moderate 6-25 bpm Accelerations: 15X15 Decelerations: None Pain Assessment Pain Scale: 5 Pain Presence: Intermittent Pain Type: Contraction Pain Location: Abdomen; Back Membrane Status: Intact Vaginal Bleeding: None Datetime: 10/08/2016 13:00 Stage of : Antepartum Maternal Assessment Level of Consciousness: Fully Conscious DTR's/Clonus: DTRs 2+ Headache: Denies Nausea/Vomiting: Denies RUQ Epigastric Pain: Denies Labor Evaluation Frequency: 0/hr Monitor Mode: External Heart Rate FHR Baseline Rate: 120 Monitor Mode: External US Variability: Moderate 6-25 bpm Accelerations: 15X15 Decelerations: None Pain Assessment Pain Scale: 0 Pain Presence: None/Denies Membrane Status: Intact Vaginal Bleeding: None Datetime: 10/08/2016 12:00 Stage of : Antepartum Maternal Assessment Level of Consciousness: Fully Conscious Headache: Denies Nausea/Vomiting: Denies RUQ Epigastric Pain: Denies Labor Evaluation Frequency: 1-2/hr Monitor Mode: External Duration (sec)2399: 60 Quality: Mild Resting Tone [place]: Relaxed Heart Rate FHR Baseline Rate: 120 Monitor Mode: External US Variability: Moderate 6-25 bpm Accelerations: 15X15 Decelerations: None Pain Assessment Pain Scale: 0 Pain Presence: None/Denies Membrane Status: Intact Vaginal Bleeding: None Datetime: 10/08/2016 11:00 Stage of : Antepartum Maternal Assessment Level of Consciousness: Fully Conscious DTR's/Clonus: DTRs 2+ Headache: Denies Breath Sounds, Left: Clear and Equal Breath Sounds, Right: Clear and Equal Nausea/Vomiting: Denies RUQ Epigastric Pain: Denies Labor Evaluation Frequency: irreg Monitor Mode: External Duration (sec)2399: 60 Quality: Mild Resting Tone [place]: Relaxed Heart Rate FHR Baseline Rate: 120 Monitor Mode: External US Variability: Moderate 6-25 bpm Accelerations: 15X15 Decelerations: None Pain Assessment Pain Scale: 0 Pain Presence: None/Denies Membrane Status: Intact Vaginal Bleeding: None Datetime: 10/08/2016 10:00 Stage of : Antepartum Maternal Assessment Level of Consciousness: Fully Conscious Headache: Denies Nausea/Vomiting: Denies RUQ Epigastric Pain: Denies Labor Evaluation Frequency: irreg Monitor Mode: External Duration (sec)2399: 60 Quality: Mild Resting Tone [place]: Relaxed Heart Rate FHR Baseline Rate: 120 Monitor Mode: External US FHR Baseline Changes: No Baseline Change Variability: Moderate 6-25 bpm Accelerations: 15X15 Decelerations: None Pain Assessment Pain Scale: 0 Pain Presence: None/Denies Membrane Status: Intact Vaginal Bleeding: None Datetime: 10/08/2016 09:55 Pain Presence: None/Denies Datetime: 10/08/2016 09:00 Stage of : Antepartum Maternal Assessment Level of Consciousness: Fully Conscious DTR's/Clonus: DTRs 2+ Headache: Denies Nausea/Vomiting: Denies RUQ Epigastric Pain: Denies Temperature Route: Oral Labor Evaluation Frequency: IRRITABL Monitor Mode: External Duration (sec)2399: 20-40 Quality: Mild Resting Tone [place]: Relaxed Heart Rate FHR Baseline Rate: 120 Monitor Mode: External US FHR Baseline Changes: No Baseline Change Variability: Moderate 6-25 bpm Accelerations: 15X15 Decelerations: None Pain Assessment Pain Scale: 0 Pain Presence: None/Denies Membrane Status: Intact Vaginal Bleeding: None Datetime: 10/08/2016 07:38 Assessment Type: Admission Assessment Maternal Assessment Level of Consciousness: Fully Conscious DTR's/Clonus: DTRs 2+ Headache: Frontal Blurred Vision: No Respiratory Effort: Unlabored; Regular Rhythm; Equal Expansion Breath Sounds, Left: Clear and Equal Breath Sounds, Right: Clear and Equal Nausea/Vomiting: Denies RUQ Epigastric Pain: Denies Lower Extremities Edema: None Upper Extremities Edema: None Facial Edema: None Fall Risk Assessment History of Falling: (0) No Secondary Diagnosis: (0) No Ambulatory Aid: (0) Bedrest/Nurse Assist IV Therapy: (20) Yes Gait: (0) Normal/Bedrest/Immobile Mental Status: (0) Oriented to Own Ability Fall Score: 20 Fall Risk Score Definition: No Risk: No action required Datetime: 10/08/2016 07:31 Maternal Assessment Level of Consciousness: Fully Conscious DTR's/Clonus: DTRs 2+ Headache: Denies Blurred Vision: No Respiratory Effort: Unlabored Breath Sounds, Left: Clear and Equal Breath Sounds, Right: Clear and Equal Nausea/Vomiting: Denies RUQ Epigastric Pain: Denies Pain Assessment Pain Scale: 4 Pain Presence: Intermittent Pain Type: Contraction Pain Location: Abdomen Pain Assessment Comments: pt. states uc q 40 minutes apart and is feeling better than when first a rrived Datetime: 10/08/2016 07:00 Labor Evaluation Frequency: IRRITABL Monitor Mode: External Duration (sec)2399: 20-40 Quality: Mild Resting Tone [place]: Relaxed Heart Rate FHR Baseline Rate: 120 Monitor Mode: External US FHR Baseline Changes: No Baseline Change Variability: Moderate 6-25 bpm Accelerations: 15X15 Decelerations: None Category: Category I Datetime: 10/08/2016 06:34 Comments: SITTING UPRIGHT. LOSS OF SIGNAL. Datetime: 10/08/2016 06:00 Labor Evaluation Frequency: OCC Monitor Mode: External Duration (sec)2399: 30-50 Quality: Mild Resting Tone [place]: Relaxed Heart Rate FHR Baseline Rate: 120 Monitor Mode: External US FHR Baseline Changes: No Baseline Change Variability: Moderate 6-25 bpm Accelerations: 15X15 Decelerations: None Category: Category I Datetime: 10/08/2016 04:59 Labor Evaluation Frequency: IRRITABL Monitor Mode: External Duration (sec)2399: 30-40 Quality: Mild Resting Tone [place]: Relaxed Heart Rate FHR Baseline Rate: 120 Monitor Mode: External US FHR Baseline Changes: No Baseline Change Variability: Moderate 6-25 bpm Accelerations: 15X15 Decelerations: None Category: Category I Datetime: 10/08/2016 04:32 Temperature Route: Oral Pain Assessment Pain Scale: 3 Pain Presence: Constant Pain Type: Ache Pain Location: Back Pain Relief Measures: Comfort Measures Datetime: 10/08/2016 04:00 Labor Evaluation Frequency: x4 Monitor Mode: External Duration (sec)2399: 50-80 Quality: Mild Resting Tone [place]: Relaxed Heart Rate FHR Baseline Rate: 130 Monitor Mode: External US FHR Baseline Changes: No Baseline Change Variability: Moderate 6-25 bpm Accelerations: 15X15 Decelerations: None Category: Category I Datetime: 10/08/2016 03:00 Labor Evaluation Frequency: X4 Monitor Mode: External Duration (sec)2399: 50-90 Quality: Mild Resting Tone [place]: Relaxed Heart Rate FHR Baseline Rate: 130 Monitor Mode: External US FHR Baseline Changes: No Baseline Change Variability: Moderate 6-25 bpm Accelerations: 15X15 Decelerations: None Category: Category I Datetime: 10/08/2016 02:00 Labor Evaluation Frequency: 0 Monitor Mode: External Heart Rate FHR Baseline Rate: 135 Monitor Mode: External US FHR Baseline Changes: No Baseline Change Variability: Moderate 6-25 bpm Accelerations: 15X15 Decelerations: None Category: Category I Datetime: 10/08/2016 00:59 Labor Evaluation Frequency: 0 Monitor Mode: External Heart Rate FHR Baseline Rate: 140 Monitor Mode: External US FHR Baseline Changes: No Baseline Change Variability: Moderate 6-25 bpm Accelerations: 15X15 Decelerations: None Category: Category I Pain Assessment Pain Scale: 0 Datetime: 10/08/2016 00:17 Assessment Type: Admission Assessment Vaginal Bleeding: None Maternal Assessment Level of Consciousness: Fully Conscious Headache: Denies Blurred Vision: No Respiratory Effort: Unlabored; Regular Rhythm; Equal Expansion Breath Sounds, Left: Clear and Equal Breath Sounds, Right: Clear and Equal Nausea/Vomiting: Denies RUQ Epigastric Pain: Denies Lower Extremities Edema: None Upper Extremities Edema: None Facial Edema: None Fall Risk Assessment History of Falling: (0) No Secondary Diagnosis: (0) No Ambulatory Aid: (0) Bedrest/Nurse Assist IV Therapy: (20) Yes Gait: (0) Normal/Bedrest/Immobile Mental Status: (0) Oriented to Own Ability Fall Score: 20 Fall Risk Score Definition: No Risk: No action required Pain Assessment Pain Scale: 0 Datetime: 10/07/2016 23:53 Stage of : Antepartum Datetime: 10/07/2016 20:07 EGA: 32.2 Datetime: 10/07/2016 20:00 Fall Score: 0 Fall Risk Score Definition: No Risk: No action required
--- NOTE | 2016-11-10 05:15 | PN ---
Triage Information Date/Time November 09 2016 Reason for visit: Uterine contractions Weeks of Gestation 37 weeks /Para 5 para 4 Diabetes: none Hypertention: none Additional information 26-year-old with IUP at 37 weeks with care with Dr. Rockwell complaining of contractions. She was noted to have elevated blood pressure 140s over 90s with 1-2+ pitting edema. She denies any headache, blurred vision or epigastric pain, vaginal bleeding or decreased movement. Objective Vital Signs Date Time Temp Pulse Resp B/P Pulse Ox O2 Delivery O2 Flow Rate FiO2 11/09/16 23:42 98.0 75 20 141/90 Room Air Heart Rate: 130's Contractions: >10 Minutes Apart Exam General appearance: Alert and oriented 4. Patient does not appear to be in any acute distress. Patient looks in mild distress. Abdomen: Soft, gravid, fundal height consistent with gestational age Extremities: No calf tenderness click 1-2+ pitting edema Negative Homans sign, negative clonus Normal patellar reflexes Center vaginal examination: 1/50/-2, vertex NST: Category 1 BPP: 10/25 Normal SHRUTI Results/Medications Result Diagram: 11/10/16 0054 11/10/16 0054 Results 24 hrs Laboratory Tests Test 11/09/16 23:00 11/10/16 00:54 Urine Color YELLOW Urine Clarity CLEAR Urine pH 6.0 Urine Specific [place] 1.015 Urine Ketones NEGATIVE Urine Nitrite NEGATIVE Urine Bilirubin NEGATIVE Urine Urobilinogen NEGATIVE Urine Leukocyte Esterase NEGATIVE Urine Hemoglobin NEGATIVE Urine Glucose NEGATIVE Urine Total Protein NEGATIVE White Blood Count 8.7 Red Blood Count 3.84 L Hemoglobin 8.9 L Hematocrit 28.7 L Mean Corpuscular Volume 74.7 L Mean Corpuscular Hemoglobin 23.2 L Mean Corpuscular Hemoglobin Concent 31.0 L Red Cell Distribution Width 15.9 H Platelet Count 165 Mean Platelet Volume 11.6 H Neutrophils % 60.7 Lymphocytes % 31.1 Monocytes % 6.6 Eosinophils % 0.8 Basophils % 0.3 Nucleated Red Blood Cells % 0.0 Neutrophils # (Manual) 5 Lymphocytes # 2.7 Monocytes # 0.6 Eosinophils # 0.1 Basophils # 0.0 Nucleated Red Blood Cells # 0.0 Prothrombin Time 13.2 Prothrombin Time Ratio 1.0 INR International Normalized Ratio 1.00 Activated Partial Thromboplast Time 30.7 Sodium Level 135 Potassium Level 3.7 Chloride Level 106 Carbon Dioxide Level 23 Anion Gap 10 Blood Urea Nitrogen 5 L Creatinine 0.60 Glucose Level 84 Uric Acid 3.9 Calcium Level 8.2 L Total Bilirubin 0.2 Direct Bilirubin 0.00 Indirect Bilirubin 0.2 Aspartate Amino Transf (AST/SGOT) 21 Alanine Aminotransferase (ALT/SGPT) 26 Alkaline Phosphatase 254 H Total Protein 6.0 L Albumin 2.9 L Globulin 3.10 Albumin/Globulin Ratio 0.93 Imaging Results PROCEDURE: Biophysical profile. CLINICAL INDICATION: Pelvic pain. TECHNIQUE: Multiple sonographic images of the pelvis were obtained with transabdominal technique. COMPARISON: 10/10/2016. FINDINGS: There is a single living intrauterine gestation with the fetus in a vertex position. The placenta is anterior in location, grade II to III. heart tones of 163 beats per minute are identified. There is low normal amniotic fluid volume with an SHRUTI of 8.7 cm. breathing movements = 2 Gross body movements = 2 tone = 2 Qualitative AFV = 2 IMPRESSION: Biophysical profile 8 out of 8. Low normal SHRUTI of 8.7 cm. .Mike Johnson MD, MD Date Time Electronically viewed and signed by .Mike Johnson MD, MD on 11/10/2016 01:20 Disposition: Discharge Assessment/Plan IUP at 37 weeks False labor pain Mild hypertension, gestational hypertension No evidence of preeclampsia Asymptomatic PIH labs are negative No cervical change noted during observation Strict labor precaution, kick count and preeclampsia precaution discussed with the patient in detail. Follow-up within 24 hours with OB clinic for repeat blood pressure check discussed. Signs and symptoms of preeclampsia discussed with the patient in detail Patient verbalized understanding DC [place] AUBREY PIMENTEL MD Nov 10, 2016 05:15
== END 2016-11-10 04:02 | disposition home or self-care (01) ==
LOC: OBT 22:35 → L-D 22:36 → OBT 11-10 04:02
PROVIDERS: ATTEND Obstetrics & Gynecology
DX: O62.9 Abnormality of forces of labor, unspecified (principal); Z3A.37 37 weeks gestation of pregnancy
CPT/HCPCS: 76815; 76818; 80053; 81003; 84560; 85025; 85610; 85730; Z7500; G0463

== ENCOUNTER 2016-11-12 03:40 | Inpatient (IN) | payer OTHER ==
[~2016-11-12] VITALS: Ht 152.4 cm; Wt 64.9 kg
[~2016-11-12 03:40] MED LIST changes: -ACET325T33 PO; -NITR-58 PO; -PREN-46 PO
[2016-11-12] MEDS ORDERED: AMPICILLIN 2 GM/NS (PMX) 100 ML ONE (05:56)
[2016-11-12] MEDS ORDERED: OXYTOCIN 30 UNITS/LR 500 ML IV ONE (05:57)
[2016-11-12] MEDS ORDERED: LIDOCAINE 1% (MPF) 30 ML INJ ONE (05:57)
[2016-11-12] MEDS ORDERED: BUTORPHANOL 2 MG INJ ONE (06:07)
[2016-11-12 06:56] VITALS: Ht 152.4 cm; Wt 64.9 kg
[2016-11-12] MEDS ORDERED: LACTATED RINGER'S 1,000 ML IV SCH (06:57)
[2016-11-12] MEDS ORDERED: IBUPROFEN 600 MG TAB PO PRN (07:00)
[2016-11-12] MEDS ORDERED: LIDOCAINE 1% (MPF) 30 ML INJ INJ PRN (07:00)
[2016-11-12] MEDS ORDERED: CARBOPROST 250 MCG INJ IM PRN (07:00)
[2016-11-12] MEDS ORDERED: MISOPROSTOL 200 MCG TAB PR PRN (07:00)
[2016-11-12] MEDS ORDERED: AMPICILLIN 2 GM/NS (PMX) 100 ML IV ONE (07:00)
[2016-11-12] MEDS ORDERED: OXYTOCIN 30 UNITS/LR 500 ML IV PRN (07:00)
[2016-11-12] MEDS ORDERED: BUTORPHANOL 2 MG INJ IV PRN (07:00)
[2016-11-12] MEDS ORDERED: METHYLERGONOVINE 0.2 MG INJ IM PRN (07:00)
[2016-11-12] MEDS ORDERED: LACTATED RINGER'S 1,000 ML IV PRN (07:00)
[2016-11-12] MEDS ORDERED: OXYTOCIN 30 UNITS/LR 500 ML IV SCH ×2 (07:00)
[2016-11-12 07:10] LABS: ABNORMAL IP MESSAGE 1; BASOPHILS % 0.2 % (0.0-2.0); EOSINOPHILS % 0.2 % (0.0-7.0); HEMATOCRIT 31.2 % (37.0-47.0); HEMOGLOBIN 9.5 g/dl (12.0-16.0); LYMPHOCYTES # 2.7 10^3/ul (0.8-2.9); LYMPHOCYTES % 19.9 % (15.0-51.0); MEAN CORPUSCULAR HEMOGLOBIN 22.3 pg (29.0-33.0); MEAN CORPUSCULAR HGB CONC 30.4 g/dl (32.0-37.0); MEAN CORPUSCULAR VOLUME 73.2 fl (82.0-101.0); MEAN PLATELET VOLUME 12.5 fl (7.4-10.4); MONOCYTE # 0.7 10^3/ul (0.3-0.9); MONOCYTES % 5.1 % (0.0-11.0); NEUTROPHILS % 74.2 % (39.0-77.0); PLATELET COUNT 169 10^3/UL (140-415); RED BLOOD COUNT 4.26 10^6/ul (4.20-5.40); RED CELL DISTRIBUTION WIDTH 16.4 % (11.5-14.5); WHITE BLOOD COUNT 13.5 10^3/ul (4.8-10.8)
[2016-11-12 07:27] LABS: INR 0.99; PROTIME 13.1 Sec (12.2-14.2)
[2016-11-12 07:28] LABS: PARTIAL THROMBOPLASTIN TIME 30.4 Sec (25.0-35.0)
[2016-11-12 08:18] LABS: POSITIVE DIFF @See below
--- NOTE | 2016-11-12 08:36 | LDN ---
Date/Time of Note Date/Time of Note DATE: 11/12/16 TIME: 08:31 Delivery Summary Normal spontaneous vaginal delivery baby boy from OA position shoulders delivered without difficulty of the baby's body followed nuchal cord 1 around the baby is cord clamped after stopped pulsation is oropharyngeal suction was performed to be handed to the team, placenta continues expulsion inspected complete, blood loss 200 mL peritoneal vaginal inspection laceration Weeks of Gestation 37 weeks 2 days Placenta Delivered: Spontaneously Meconium: none Episiotomy: No Laceration repair: Vaginal perineal inspection no laceration Anesthesia type: Epidural Estimated blood loss: 200 Sponge & Needle done & correct: Yes Any foreign bodies felt in the: No Problems: Delivery Information Sex Infant Sex: male Apgars 1 Minute: 9 5 Minute: 9 Suctioning Nose & mouth suctioned at [place]: Yes Delee suction performed: No Umbilical Cord Umbilical cord with: 3 Vessels Cord presentations: nuchal cord Cord Blood was obtained: Yes FRANNIE SANTA MD Nov 12, 2016 08:36
--- NOTE | 2016-11-12 08:39 | HP ---
Date/Time of Note Date/Time of Note DATE: 11/12/16 TIME: 08:36 OB - History Hx of Present Free Text/Dictation 46 years old female with a 5 para 4 EDC 12/02 admitted to [facility] in active labor pelvic examination on admission cervix 3 cm dilated 80% effaced vertex at -3 station contraction 3-5 minute patient transferred to the active management for vaginal delivery Chief Complaint: Contraction Estimated Due Date: Dec 02, 2016 : 5 Para: 4 Care: Good Care Ultrasounds: Normal mid trimester US Obstetrical Complications: None Past Family/Social History * Past Medical, Surgical, Family and Obstetric Histories reviewed from chart. Rubella: immune RPR/VDRL: Negative GBS Status: Negative HBsAG: Negative OB Admission Exam Physical Exam HEENT: WNL Heart: Rhythm Normal Lungs: Clear, Equal Abdomen: WNL Extremities: Normal Reflexes: Normal Cervical Dilatation: 3cm Effacement: Other (80%) Station: -2 Amniotic Fluid: Clear Heart Rate: 130's Accelerations: Accelerations Present Decelerations: No Decelerations Varibility: Moderate Contractions on Admission: < 5 Minutes Apart Intensity: Moderate Last 72 hours Lab Results CBC & BMP 11/12/16 05:56 FRANNIE SANTA MD Nov 12, 2016 08:39
--- NOTE | 2016-11-12 08:56 | HP ---
Date/Time of Note Date/Time of Note DATE: 11/12/16 TIME: 08:55 OB - History Hx of Present Free Text/Dictation co of ucx Para: 5 Spontaneous : 4 Care: None Ultrasounds: Normal mid trimester US Past Family/Social History * Past Medical, Surgical, Family and Obstetric Histories reviewed from chart. OB Admission Exam Physical Exam HEENT: WNL Heart: Rhythm Normal Reflexes: Normal Last 72 hours Lab Results CBC & BMP 11/12/16 05:56 OB Assessment/Plan Plan: Expectant Management Other plan: iup 37 weeks labor admit for JANINE CRAWFORD MD Nov 12, 2016 08:56
[2016-11-12 10:30] VITALS: BP 130/77; PULSE 69; RESP 18
[2016-11-12] MEDS ORDERED: ONDANSETRON 4 MG INJ IV PRN (11:00)
[2016-11-12] MEDS ORDERED: LANOLIN 7 GM TUBE TOP PRN (11:00)
[2016-11-12] MEDS ORDERED: WITCH HAZEL/GLYCERIN PAD PR PRN (11:00)
[2016-11-12] MEDS ORDERED: HYDROCODONE/APAP (5/325) TAB PO PRN ×2 (11:00)
[2016-11-12] MEDS ORDERED: ACETAMINOPHEN 325 MG TAB PO PRN (11:00)
[2016-11-12] MEDS ORDERED: BENZOCAINE 20% 56 ML SPRAY TOP PRN (11:00)
[2016-11-12] MEDS ORDERED: AMPICILLIN 1 GM/NS (PMX) 50 ML IV SCH (11:00)
[2016-11-12] MEDS ORDERED: DIBUCAINE 1% 30 GM OINT PR PRN (11:00)
[2016-11-12] MEDS ORDERED: OXYCODONE/ASPIRIN (4.88/325) TAB PO PRN ×2 (11:00)
[2016-11-12] MEDS: IBUPROFEN 600 MG TAB PO SCH ×2 (11:24→18:02)
[2016-11-12] MEDS: OXYTOCIN 30 UNITS/LR 500 ML IV SCH ×2 (13:43→14:43)
[2016-11-12 16:00] VITALS: BP 130/72; PULSE 52; RESP 18
[2016-11-12 21:00] VITALS: BP 113/69; PULSE 52; RESP 19
[2016-11-13] MEDS: IBUPROFEN 600 MG TAB PO SCH ×5 (00:30→23:48)
[2016-11-13] MEDS: SENNA/DOCUSATE NA (8.6MG/50MG) TAB PO SCH ×3 (00:30→20:34)
[2016-11-13 04:30] VITALS: BP 126/76; PULSE 58; RESP 19
[2016-11-13 07:45] VITALS: BP 105/76; PULSE 54; RESP 16
[2016-11-13 08:21] LABS: ABNORMAL IP MESSAGE 1; BASOPHILS % 0.3 % (0.0-2.0); EOSINOPHILS # 0.1 10^3/ul (0.0-0.5); EOSINOPHILS % 0.4 % (0.0-7.0); HEMATOCRIT 29.1 % (37.0-47.0); LYMPHOCYTES # 3.3 10^3/ul (0.8-2.9); LYMPHOCYTES % 28.3 % (15.0-51.0); MEAN CORPUSCULAR HEMOGLOBIN 23.1 pg (29.0-33.0); MEAN CORPUSCULAR HGB CONC 30.9 g/dl (32.0-37.0); MEAN CORPUSCULAR VOLUME 74.6 fl (82.0-101.0); MEAN PLATELET VOLUME 12.1 fl (7.4-10.4); MONOCYTE # 0.5 10^3/ul (0.3-0.9); MONOCYTES % 4.7 % (0.0-11.0); PLATELET COUNT 170 10^3/UL (140-415); RED CELL DISTRIBUTION WIDTH 16.5 % (11.5-14.5); WHITE BLOOD COUNT 11.6 10^3/ul (4.8-10.8)
[2016-11-13 08:22] LABS: POSITIVE DIFF @See below
[2016-11-13 15:50] VITALS: BP 140/77; PULSE 54; RESP 18
--- NOTE | 2016-11-13 17:10 | QN ---
Documentation Comment ppd 1 pt doing well vss exam wnl a/p ppd 1 continue care JANINE CRAWFORD MD Nov 13, 2016 17:10
[2016-11-13 20:30] VITALS: BP 163/72; PULSE 65; RESP 18
[2016-11-13 20:31] VITALS: BP 162/72; PULSE 66; RESP 18
[2016-11-13 23:50] VITALS: BP 143/75; PULSE 55; RESP 18
[2016-11-14 04:30] VITALS: BP 134/76; PULSE 82; RESP 18
[2016-11-14] MEDS: IBUPROFEN 600 MG TAB PO SCH ×2 (05:58→11:45)
[2016-11-14 08:30] VITALS: BP 132/82; PULSE 60; RESP 18
[2016-11-14] MEDS ORDERED: MEASLES,MUMPS,RUBELLA VACCINE INJ SC* ONE (09:00)
[2016-11-14] MEDS: SENNA/DOCUSATE NA (8.6MG/50MG) TAB PO SCH (09:26)
--- NOTE | 2016-11-14 12:17 | DS ---
Date/Time of Note Date/Time of Note DATE: 11/14/16 TIME: 12:17 Obstetrical Discharge Record Final Diagnosis Final Diagnosis: Term delivered Vaginal Delivery Obstetrical Delivery: Spontaneous Condition on Discharge Physical Assessment Voiding: Yes Bowel Movement: Yes Breast: Soft, non-tender Fundus: Firm Calf Tenderness: No Patient Condition: Stable JANINE CRAWFORD MD Nov 14, 2016 12:17
== END 2016-11-14 16:12 | disposition home or self-care (01) | DRG 775 ==
LOC: L-D 03:40 → PP1 10:45
PROVIDERS: ADMIT Obstetrics & Gynecology; ATTEND Obstetrics & Gynecology
PROC: 10E0XZZ Delivery of Products of Conception, External Approach (ICD-10-PCS; principal; 2016-11-12)
DX: O69.81X0 Labor and delivery complicated by cord around neck, without compression, not applicable or unspecified (principal); Z37.0 Single live birth; Z3A.37 37 weeks gestation of pregnancy
CPT/HCPCS: 85025; 85610; 85730; 86592; 86900; 86901; 87340; G0463; J0290; J0595; J2590; J7120